=== PATIENT | female | born 1985 ===

== ENCOUNTER 2017-10-02 09:59 | Emergency (ER) | payer OTHER ==
[~2017-10-02] VITALS: Ht 175.3 cm; Wt 65.8 kg
[~2017-10-02 09:59] MED LIST: AMOX1TAB12 PO; SYNTHROID50 MCG
[2017-10-02] MEDS ORDERED: DICY20TA PO (15:42)
[2017-10-02] MEDS ORDERED: PROTONIX40 MG PO (15:42)
== END 2017-10-02 15:55 | disposition home or self-care (01) ==
LOC: ER 09:59
DX: K29.70 Gastritis, unspecified, without bleeding (principal)